=== PATIENT | female | born 1990 | race Asian ===

== ENCOUNTER 2022-08-14 07:58 | Outpatient (REF) | payer BC, SELFPAY ==
--- NOTE | ~2022-08-14 | XR_ITS ---
EXAMINATION: XR CHEST CLINICAL INFORMATION: Screening, immigration COMPARISON: None available. TECHNIQUE: AP lordotic image view of the chest was obtained. FINDINGS: No acute finding. Lung miller are felt to be grossly clear. No infiltrate. No effusion. The cardiac silhouette is within normal limits. The hilar regions do not appear pathologically enlarged. XR/XR chest 1V IMPRESSION: No acute finding
== END 2022-08-14 07:59 | disposition home or self-care (01) ==
LOC: HO.XRAY 07:58
PROVIDERS: Visit Provider Internal Medicine
DX: Z13.89 Encounter for screening for other disorder (principal)
CPT/HCPCS: 71045